=== PATIENT | female | born 1970 | race African-American/Black ===

== ENCOUNTER 2023-09-16 02:14 | Day surgery (SDC) | payer OTHER, SELFPAY ==
[2023-08-06 11:30] VITALS: BMI 25.7
--- NOTE | 2023-08-30 12:35 | SUR.PREOP ---
Patient called regarding upcoming procedure. Voicemail left regarding appointment times.
--- NOTE | 2023-08-30 17:18 | PM.HPGS ---
History of Present Illness History of Present Illness Consent: Risks, benefits, and alternatives have been discussed and questions answered. Patient agrees to proceed with procedure. Chief complaint: neoplasm screening Narrative: Magaly Camara is a 52 year old female Referred for colon cancer screening. [facility] Past Medical History Medical History Acid reflux Allergies Family History Family History Other Alcoholism Hypertension Social History Social History Smoking status: Never smoker Alcohol intake: current Drinks per week: 2 Substance use: never Substance use type: does not use Lack of Transportation: No Current Housing: I Have Housing Concerned About Future Housing: No Difficulty Paying Gas/Electric Bills: No Difficulty Paying for Meds: No Currently Unemployed: No Education: Trade/Vocational Certificate Difficulty w/ Childcare or Family Care: No Living arrangements: with family Spiritual care concerns: No Meds Home Medications and Allergies Home Medications Medication Instructions Recorded Confirmed Type cetirizine 10 mg tablet (Zyrtec) 10 mg PO DAILY PRN allergies 11/21/21 08/06/23 History mecobalamin (vitamin B12) 5,000 5,000 mcg PO DAILY 11/21/21 08/06/23 History mcg lozenge multivitamin 1 tablet PO DAILY 11/21/21 08/06/23 History metronidazole 0.75 % (37.5 mg/5 1 appful vaginal .twice week 3 10/02/22 08/06/23 Rx gram) vaginal gel months #70 grams metronidazole 1.3 % (65 mg/5 gram) 1 appful vaginal WEEKLY 2 weeks #5 10/02/22 08/06/23 Rx vaginal gel (Nuvessa) grams fluconazole 150 mg tablet 150 mg PO ONCE #1 tablet 10/15/22 08/06/23 Rx (Diflucan) secnidazole 2 gram oral delayed 1 packet PO ONCE #1 ea 08/12/23 Rx release granules in packet (Solosec) Allergies Allergy/AdvReac Type Severity Reaction Status Date / Time nickel Allergy Mild Rash Verified 08/08/23 10:44 Assessment and Plan Assessment and plan (1) Colon cancer screening: Code(s): Z12.11 - Encounter for screening for malignant neoplasm of colon Status: Acute Assessment and Plan: Colonoscopy with possible biopsy or polypectomy or cautery or injection of substances.
--- NOTE | 2023-09-13 09:45 | SUR.PREOP ---
Patient called regarding upcoming procedure. Reviewed preop instructions, appointment times, and procedure prep.
[2023-09-16 08:53] VITALS: BP 107/76; PULSE 87; RESP 20; TEMP 36; O2SAT 99
--- NOTE | 2023-09-16 09:01 | PM.HPGS ---
History of Present Illness History of Present Illness Consent: Risks, benefits, and alternatives have been discussed and questions answered. Patient agrees to proceed with procedure. Chief complaint: neoplasm screening Narrative: Magaly Camara is a 52 year old female here for first screening colonoscopy Review of Systems Review of Systems: All systems reviewed & are unremarkable except as noted in HPI and below PMFSH Past Medical History Medical History Acid reflux Allergies Family History Family History Other Alcoholism Hypertension Social History Social History Smoking status: Never smoker Alcohol intake: current Drinks per week: 2 Substance use: never Substance use type: does not use Lack of Transportation: No Current Housing: I Have Housing Concerned About Future Housing: No Difficulty Paying Gas/Electric Bills: No Difficulty Paying for Meds: No Currently Unemployed: No Education: Trade/Vocational Certificate Difficulty w/ Childcare or Family Care: No Living arrangements: with family Spiritual care concerns: No Meds Home Medications and Allergies Home Medications Medication Instructions Recorded Confirmed Type cetirizine 10 mg tablet (Zyrtec) 10 mg PO DAILY PRN allergies 11/21/21 09/04/23 History mecobalamin (vitamin B12) 5,000 5,000 mcg PO DAILY 11/21/21 09/04/23 History mcg lozenge multivitamin 1 tablet PO DAILY 11/21/21 09/04/23 History metronidazole 0.75 % (37.5 mg/5 1 appful vaginal .twice week 3 10/02/22 09/04/23 Rx gram) vaginal gel months #70 grams metronidazole 1.3 % (65 mg/5 gram) 1 appful vaginal WEEKLY 2 weeks #5 10/02/22 09/04/23 Rx vaginal gel (Nuvessa) grams fluconazole 150 mg tablet 150 mg PO ONCE #1 tablet 10/15/22 09/04/23 Rx (Diflucan) secnidazole 2 gram oral delayed 1 packet PO ONCE #1 ea 08/12/23 09/04/23 Rx release granules in packet (Solosec) Allergies Allergy/AdvReac Type Severity Reaction Status Date / Time nickel Allergy Mild Rash Verified 09/16/23 08:49 Vital Signs Vital Signs - 24 hr 09/16/23 08:53 Temperature 96.8 F L Pulse Rate 87 Respiratory Rate 20 Blood Pressure 107/76 Pulse Oximetry 99 Oxygen Delivery Room Air Exam Const: General: comfortable and no acute distress HENMT: Face/Nose/Sinus: Normal nares present Eyes: General: appearance normal, both eyes and all related structures Neck: Neck: no JVD Resp: Auscultation: clear to auscultation bilaterally Cardio: Rate: regular rate Rhythm: regular rhythm GI: Inspection: non-distended GI Palp: Yes Soft to palpation Skin: General skin exam: normal color Neuro: General: gait normal Speech: normal speech Extrem: General: normal to inspection Psych: Mental Status: mental status grossly normal Assessment and Plan Assessment and plan (1) Colon cancer screening: Code(s): Z12.11 - Encounter for screening for malignant neoplasm of colon Status: Acute Assessment and Plan: colonoscopy
--- NOTE | 2023-09-16 09:04 | WPDANESEPPF ---
Anes - Initial Pre Proc Eval Procedure: Operation Date: 09/16/23 09:30 Proposed Procedures p Screening Colonoscopy - Clint Colon MD Date/Time: 09/16/23 09:04 Surgeon: Clint Colon MD Pre Op Diagnosis: neoplasm screening Patient Data Age: 52 Gender: F Height: 1.63 m Weight: 66 kg Last Vital Signs Temp 96.8 F L 09/16/23 08:53 Pulse 87 09/16/23 08:53 Resp 20 09/16/23 08:53 BP 107/76 09/16/23 08:53 Pulse Ox 99 09/16/23 08:53 O2 Del Method Room Air 09/16/23 08:53 Allergies Allergy/AdvReac Type Severity Reaction Status Date / Time nickel Allergy Mild Rash Verified 09/16/23 08:49 Home Medications Medication Instructions Recorded Confirmed Type cetirizine 10 mg tablet (Zyrtec) 10 mg PO DAILY PRN allergies 11/21/21 09/04/23 History mecobalamin (vitamin B12) 5,000 5,000 mcg PO DAILY 11/21/21 09/04/23 History mcg lozenge multivitamin 1 tablet PO DAILY 11/21/21 09/04/23 History metronidazole 0.75 % (37.5 mg/5 1 appful vaginal .twice week 3 10/02/22 09/04/23 Rx gram) vaginal gel months #70 grams metronidazole 1.3 % (65 mg/5 gram) 1 appful vaginal WEEKLY 2 weeks #5 10/02/22 09/04/23 Rx vaginal gel (Nuvessa) grams fluconazole 150 mg tablet 150 mg PO ONCE #1 tablet 10/15/22 09/04/23 Rx (Diflucan) secnidazole 2 gram oral delayed 1 packet PO ONCE #1 ea 08/12/23 09/04/23 Rx release granules in packet (Solosec) Patient hx anesthesia problems: none Family hx anesthesia problems: none Results Review: All pre-operative results and documents have been reviewed as part of the pre-operative evaluation. [facility] Past Medical History Medical History Acid reflux Allergies Family History Family History Other Alcoholism Hypertension Social History Social History Smoking status: Never smoker Alcohol intake: current Drinks per week: 2 Substance use: never Substance use type: does not use Lack of Transportation: No Current Housing: I Have Housing Concerned About Future Housing: No Difficulty Paying Gas/Electric Bills: No Difficulty Paying for Meds: No Currently Unemployed: No Education: Trade/Vocational Certificate Difficulty w/ Childcare or Family Care: No Living arrangements: with family Spiritual care concerns: No Anes - Eval Final PreProcedure Day of Procedure 09/16/23 09:04 Patient weight: normal Heart: regular rate and rhythm Lungs: clear to auscultation Airway: Mallampati scale class II Neurological: alert and oriented Last oral intake: >/= 8 hours ASA classification: II Emergent: no Anesthetic plan: proceed Anesthesia type and monitoring: general GIVS and standard monitoring Results Review: All pre-operative results and documents have been reviewed as part of the pre-operative evaluation. Informed Consent: The patient's anesthetic plan and its attendant risks and benefits were discussed with the patient/family/POA. Questions were solicited and answers provided to the satisfaction of the patient/family/POA.
[2023-09-16] MEDS: LACTATED RINGERS 1,000 ML 150 ML IV CONT (09:11)
[2023-09-16 09:33] VITALS: BP 96/64; PULSE 86; RESP 20; O2SAT 99
[2023-09-16 09:43] VITALS: BP 96/50; PULSE 86; RESP 20; O2SAT 100
[2023-09-16 09:53] VITALS: BP 113/73; PULSE 75; RESP 27; O2SAT 100
== END 2023-09-16 10:05 | disposition home or self-care (01) ==
PROVIDERS: Referring Provider Obstetrics & Gynecology; Visit Provider Internal Medicine Gastroenterology
PROC: 0DJD8ZZ Inspection of Lower Intestinal Tract, Via Natural or Artificial Opening Endoscopic (ICD-10-PCS; CPT 45378; principal; 2023-09-16 09:30)
DX: Z12.11 Encounter for screening for malignant neoplasm of colon (principal); D12.3 Benign neoplasm of transverse colon; K64.8 Other hemorrhoids; K21.9 Gastro-esophageal reflux disease without esophagitis
CPT/HCPCS: 45385; 88305; J2704; J7120